=== PATIENT | male | born 1995 | race Caucasian/White ===

== ENCOUNTER 2022-01-21 12:58 | Emergency (ER) | payer OTHER ==
[~2022-01-21] VITALS: Ht 182.9 cm; Wt 89.1 kg
[2022-01-21] MEDS: LIDOCAINE 1% 10 ML VIAL SQ ONE ×2 (15:29→15:32)
[2022-01-21] MEDS ORDERED: HYDROCODONE/ACETAMINOPHEN 5-325 MG TABLET PO ONE (17:30)
[2022-01-21] MEDS ORDERED: CEPHALEXIN MONOHYDRATE 500 MG CAPSULE PO ONE (17:45)
[2022-01-21] MEDS ORDERED: KETOROLAC TROMETHAMINE 30 MG/ML VIAL IM ONE (18:00)
[2022-01-21 18:07] VITALS: BP 127/75
== END 2022-01-21 18:31 ==
LOC: EMS 13:03
DX: S62.634B Displaced fracture of distal phalanx of right ring finger, initial encounter for open fracture (principal); F17.210 Nicotine dependence, cigarettes, uncomplicated; W18.39XA Other fall on same level, initial encounter; Y93.89 Activity, other specified; Y92.89 Other specified places as the place of occurrence of the external cause; Y99.8 Other external cause status
CPT/HCPCS: 26755; 73130; 96372; 99285; J0690; J1885; J3490